=== PATIENT | male | born 1935 | race African-American/Black ===

== ENCOUNTER 2019-03-31 10:25 | Inpatient (IN) | payer MEDICARE ==
[~2019-03-31] VITALS: Ht 167.6 cm; Wt 100.7 kg
[~2019-03-31 10:25] MED LIST: AZIT500T2 PO; BRIM10DR2 OP; CRES10 PO; GABA-531 PO; INSLAN SQ; INSNOV SUBCUT; PANT40TA4 PO; RANI150T7 PO; SPIR25TA6 PO
[2019-03-31] MEDS ORDERED: SODIUM CHLORIDE 0.9% 1,000 ML IV ONE (10:47)
[2019-03-31 11:22] LABS: BASOPHILS % 0.3 % (0.0-2.0); EOSINOPHILS % 0.1 % (0.0-5.0); HEMATOCRIT. 44.5 % (42.0-52.0); HEMOGLOBIN. 14.8 g/dL (14.0-18.0); LYMPHOCYTES % 24.1 % (20.0-50.0); MEAN CORPUSCULAR HEMOGLOBIN 27.7 pg (28.0-32.0); MEAN CORPUSCULAR VOLUME 83.5 fL (80.0-94.0); MEAN PLATELET VOLUME 8.9 fl (7.4-10.4); MONOCYTES % 6.8 % (2.0-8.0); NEUTROPHILS % 68.7 % (40.0-76.0); PLATELET 152 x1000/uL (130-400); RED BLOOD CELL COUNT 5.34 mill/uL (4.7-6.1); RED CELL DISTRIBUTION WIDTH 13.2 % (11.6-14.6)
[2019-03-31 11:30] LABS: CHLORIDE 106 mEq/L (98-107); INR 1.1; PROTHROMBIN TIME 11.1 sec (9.6-11.0)
[2019-03-31 11:35] LABS: ETHANOL BLOOD < 10 mg/dL
[2019-03-31 11:36] LABS: CLARITY URINE CLEAR (CLEAR); COLOR URINE YELLOW (YELLOW); KETONES URINE 1+ (NEGATIVE); LEUKOCYTE ESTERASE URINE NEGATIVE (NEGATIVE); NITRITE URINE NEGATIVE (NEGATIVE); OCCULT BLOOD URINE NEGATIVE (NEGATIVE); PROTEIN URINE 2+ (NEGATIVE); SPECIFIC GRAVITY URINE 1.023 (1.005-1.030); UROBILINOGEN URINE 0.2 E.U./dL (0.2-1.0)
[2019-03-31] MEDS ORDERED: ASPIRIN 325MG EC TABLET PO ONE (12:00)
[2019-03-31 12:06] LABS: *AMPHETAMINES SCREEN URINE NEGATIVE (NEGATIVE); *BARBITURATES SCREEN URINE NEGATIVE (NEGATIVE); *BENZODIAZEPINES SCREEN URINE NEGATIVE (NEGATIVE); *COCAINE SCREEN URINE NEGATIVE (NEGATIVE); CANNABINOID URINE SCREEN NEGATIVE (NEGATIVE); METHADONE URINE SCREEN NEGATIVE (NEGATIVE); OPIATES URINE SCREEN NEGATIVE (NEGATIVE); PHENCYCLIDINE URINE SCREEN NEGATIVE (NEGATIVE)
[2019-03-31] MEDS ORDERED: NITROGLYCERIN 0.4MG TABLET SL SL PRN (14:00)
[2019-03-31] MEDS ORDERED: DOCUSATE SODIUM 100MG CAPSULE PO PRN (14:00)
[2019-03-31] MEDS ORDERED: ZOLPIDEM TARTRATE 5MG TABLET PO PRN (14:00)
[2019-03-31] MEDS ORDERED: DEXTROSE 50% WATER 50ML SYRINGE IV PRN (14:00)
[2019-03-31] MEDS ORDERED: IPRATROPIUM/ALBUTEROL 0.5-3(2.5)MG/3ML NEB NEB PRN (14:00)
[2019-03-31] MEDS ORDERED: CLONIDINE 0.1MG TABLET PO PRN (14:00)
[2019-03-31] MEDS ORDERED: ONDANSETRON HCL 4MG/2ML INJ IV PRN (14:00)
[2019-03-31] MEDS ORDERED: ACETAMINOPHEN 325MG TABLET PO PRN (14:00)
[2019-03-31] MEDS ORDERED: GUAIFENESIN 200MG/10ML SUGAR FREE UDC PO PRN (14:00)
[2019-03-31] MEDS ORDERED: MAGNESIUM/ALUMINUM HYDROXIDE/SIMETHICONE 30ML UDC PO PRN (14:00)
[2019-03-31 15:51] LABS: T4 FREE 1.05 ng/dL (0.76-1.46)
[2019-03-31] MEDS ORDERED: ENOXAPARIN 30MG/0.3ML SYR SUBCUT NR (16:00)
[2019-03-31 16:10] LABS: CREATINE KINASE MB FRACTION 15.3 ng/mL (0.5-3.6)
[2019-03-31 16:15] LABS: VITAMIN B12 SERUM 265 pg/mL (211-911)
[2019-03-31 16:24] LABS: FOLIC ACID (FOLATE) SERUM > 20.00 ng/mL (>5.38)
[2019-03-31] MEDS ORDERED: BLOOD SUGAR DIAGNOSTIC STRIP TEST SCH (17:00)
[2019-03-31 18:16] VITALS: BP 177/99
[2019-03-31] MEDS ORDERED: TRAMADOL 50MG TABLET PO PRN (18:20)
[2019-03-31 20:00] VITALS: BP_SYST 146; BP_SYST 161; BP_DIAS 89; BP_DIAS 92
[2019-03-31] MEDS: BLOOD SUGAR DIAGNOSTIC STRIP TEST SCH (21:45)
[2019-03-31] MEDS: FAMOTIDINE 20MG TABLET PO SCH (21:53)
[2019-03-31] MEDS: INSULIN LISPRO 100 UNITS/ML SUBCUT SCH (21:56)
[2019-04-01] VITALS: BP 154/98
[2019-04-01 00:25] LABS: CREATINE KINASE MB FRACTION 11.1 ng/mL (0.5-3.6)
[2019-04-01 04:00] VITALS: BP 162/82
[2019-04-01] MEDS: BLOOD SUGAR DIAGNOSTIC STRIP TEST SCH ×2 (06:24→12:11)
[2019-04-01] MEDS: INSULIN LISPRO 100 UNITS/ML SUBCUT SCH ×2 (07:50→12:29)
[2019-04-01 08:00] VITALS: BP 163/97
[2019-04-01] MEDS ORDERED: ENOXAPARIN 30MG/0.3ML SYR SUBCUT SCH (09:00)
[2019-04-01] MEDS ORDERED: ASPIRIN 325MG EC TABLET PO SCH (09:00)
[2019-04-01] MEDS: FAMOTIDINE 20MG TABLET PO SCH (09:13)
[2019-04-01 09:16] LABS: CREATINE KINASE MB FRACTION 10.8 ng/mL (0.5-3.6)
[2019-04-01 10:56] VITALS: BP 163/97
[2019-04-01 12:00] VITALS: BP 178/90
== END 2019-04-01 13:46 | disposition home or self-care (01) | DRG 92 ==
LOC: ER 10:25 → 6WST 13:21 → EDBEDREQ 13:27 → SUPCPDRO 13:47 → ENRESERV 17:20
PROVIDERS: ADMIT Internal Medicine; ATTEND Internal Medicine
DX: G92 Toxic encephalopathy (principal); M62.82 Rhabdomyolysis; I24.9 Acute ischemic heart disease, unspecified; E11.649 Type 2 diabetes mellitus with hypoglycemia without coma; E78.00 Pure hypercholesterolemia, unspecified; K21.9 Gastro-esophageal reflux disease without esophagitis; I10 Essential (primary) hypertension; Z79.4 Long term (current) use of insulin; Z86.73 Personal history of transient ischemic attack (TIA), and cerebral infarction without residual deficits; Z79.2 Long term (current) use of antibiotics; Z79.899 Other long term (current) drug therapy
CPT/HCPCS: 36415; 70551; 71045; 74176; 80053; 80061; 80305; 80320; 81003; 82550; 82553; 82607; 82746; 82962; 83036; 83605; 84439; 84443; 84484; 85025; 93005; 93970; 99285; J1650; J1815; J7030; G0480